=== PATIENT | female | born 1975 | race African-American/Black ===

== ENCOUNTER 2023-04-07 12:35 | Emergency (ER) | payer BC, SELFPAY ==
[~2023-04-07 12:35] MED LIST: Iopamidol 370 76% 100 ML VIAL ONE
[2023-04-07] MEDS ORDERED: Morphine 2 MG/ML VIAL ONE (13:17)
[2023-04-07] MEDS ORDERED: Ondansetron PF 4 MG/2 ML Vial ONE (13:17)
[2023-04-07] MEDS ORDERED: Sodium Chloride 0.9% 1,000 ML ONE ×2 (13:17→14:22)
[2023-04-07 13:42] LABS: #Lymphocytes 0.6 thou/uL (1.20-3.40); #Monocytes 0.2 thou/uL (0.11-0.59); %Basophils 0.2 % (0.0-1.0); %Eosinophils 0.4 % (0.0-10.0); %Lymphocytes 5.9 % (21.0-51.0); %Monocytes 1.8 % (0.0-10.0); %Neutrophils 91.8 % (42.0-75.0); Hematocrit 38.9 % (36.0-47.0); Hemoglobin 12.7 g/dL (12.0-16.0); Mean Corpuscular HGB CONC 32.7 g/dL (32.0-36.0); Mean Corpuscular Hemoglobin 28.8 pg (27.0-31.0); Platelet Count 286 10x3/uL (130-400); RBC Distribution Width 12.1 % (11.5-14.5); Red Blood Cell (RBC) Count 4.42 mill/uL (4.20-5.40); White Blood Cell (WBC) Count 10.9 10x3/uL (4.8-10.8)
[2023-04-07 13:47] LABS: Bilirubin Negative (Negative); Blood, Urine Trace (Negative); Clarity Clear (Clear); Glucose, Urine (Dipstick) Negative (Negative); Ketone, Urine Negative (Negative); Leukocyte Trace (Negative); Nitrite Negative (Negative); Protein, Urine (Dipstick) Negative (Neg-Trace); Specific Gravity, Urine 1.025 (1.005-1.030); Urobilinogen 0.2 mg/dL (Less than 2)
[2023-04-07 13:48] LABS: Pregnancy Test - Urine (BHCG) Negative (Negative); Pregu Control Background? CLEAR/WHITE (CLR/WHITE); Pregu Control Bar Appear? YES (CONTROL BAR); Specific Gravity 1.025 (1.002-1.036)
[2023-04-07 13:54] LABS: Bacteria/HPF Rare-Few HPF (None Seen); CAUTI Indications for Culture Acute Hematuria; RBC/HPF 0-3 HPF (0-3); Squamous Epithelial 0-3 HPF (0-3)
[2023-04-07 13:55] LABS: Urine Culture Reflex No No
[2023-04-07 14:02] LABS: ALT (SGPT) 154 U/L (8-55); AST (SGOT) 332 U/L (5-34); Albumin 4.4 g/dL (3.5-5.0); Alkaline Phosphatase 124 U/L (40-110); Anion Gap 15 mmol/L (10-20); BUN (Urea Nitrogen) 16 mg/dL (7.0-18.7); Bilirubin, Total 0.7 mg/dL (0.2-1.2); Calc. Creatinine Clearance 0 mL/min (70-130); Carbon Dioxide 26 mmol/L (22-29); Chloride 99 mmol/L (98-107); Estimated GFR 95; Globulin 3.2 g/dL (2.4-3.5); Glucose 117 mg/dL (70-105); Lipase 19 U/L (8-78); Potassium 3.7 mmol/L (3.5-5.1); Protein, Total 7.6 g/dL (6.0-8.3); Sodium 136 mmol/L (136-145); Troponin I Less than 0.010 ng/mL (< 0.028)
[2023-04-07] MEDS ORDERED: Ketorolac Tromethamine 30 MG (1 mL) VIAL ONE (14:07)
[2023-04-07] MEDS ORDERED: Metoclopramide HCl 10 MG (2 mL) VIAL ONE (16:01)
[2023-04-07] MEDS ORDERED: Mag-Al Plus 1200/1200/120 MG (30 mL) UDCUP ONE (16:02)
[2023-04-07] MEDS ORDERED: Sodium Chloride 0.9% 100 ML ONE (16:02)
[2023-04-07] MEDS ORDERED: Polyethylene Glycol 3350 17 GM Packet ONE (16:39)
[2023-04-08 00:45] LABS: HBCM Index 0.06 S/CO (0-0.79); Hep A IgM AB Non-Reactive S/CO (NonReactive); Hep A IgM S/CO 0.09 S/CO (0-0.79); Hep B Surf Ag Non-Reactive S/CO (NonReactive); Hep C IgG Ab Non-Reactive S/CO (NonReactive); Hep C Index 0.09 S/CO (0-0.79); Hepatitis B Core IgM Abs Non-Reactive S/CO (NonReactive)
== END 2023-04-07 18:30 | disposition home or self-care (01) ==
LOC: NAV ERS 12:35
DX: K29.70 Gastritis, unspecified, without bleeding (principal); K59.00 Constipation, unspecified; K75.9 Inflammatory liver disease, unspecified; F17.290 Nicotine dependence, other tobacco product, uncomplicated
CPT/HCPCS: 36415; 74177; 80053; 80074; 81001; 81025; 82274; 83690; 84484; 85025; 96361; 96365; 96375; J1885; J2272; J2405; J2765; J7050; Q9967